=== PATIENT | female | born 1965 | race Caucasian/White ===

== ENCOUNTER 2023-04-23 18:05 | Emergency (ER) | payer MEDICAID ==
[~2023-04-23] VITALS: Ht 177.8 cm; Wt 90.0 kg
[2023-04-23] MEDS ORDERED: ondansetron 4mg rapidly disintigrating tab PO ONE (19:30)
[2023-04-23] MEDS ORDERED: morphine 4 MG/ML inj SYRINge IM ONE (19:30)
[2023-04-23 20:18] LABS: BASOPHILS % (AUTO) 0.3 % (0-1); EOSINOPHILS % (AUTO) 0.3 % (0-6); HEMATOCRIT 35.1 % (35.0-45.0); HEMOGLOBIN 11.9 g/dl (12.0-16.0); LYMPHOCYTES # (AUTO) 2.4 X10'3 (1.1-4.8); LYMPHOCYTES % (AUTO) 25.2 % (21-51); MEAN CORPUSCULAR HEMOGLOBIN 32.5 PG (27.0-31.0); MEAN CORPUSCULAR VOLUME 95.5 FL (78-98); MEAN PLATELET VOLUME 7.8 FL (7.4-10.4); MONOCYTES # (AUTO) 1.5 X10'3 (0-0.9); MONOCYTES % (AUTO) 15.7 % (2-12); NEUTROPHILS # (AUTO) 5.5 X10'3 (1.8-7.7); NEUTROPHILS % (AUTO) 58.5 % (42-75); PLATELET COUNT 126 X10'3 (140-440); RED BLOOD COUNT 3.67 X10'6 (4.20-5.60); RED CELL DISTRIBUTION WIDTH 14.1 % (11.5-14.5); WHITE BLOOD COUNT 9.4 X10'3 (4.5-11.0)
[2023-04-23 20:31] LABS: ALANINE AMINOTRANSFERASE 13 U/L (12-78); ALBUMIN 2.7 G/DL (3.4-5.0); ALBUMIN/GLOBULIN RATIO 0.8 (1.1-1.5); ALKALINE PHOSPHATASE 41 IU/L (46-116); ANION GAP 4 (8-16); ASPARTATE AMINO TRANSFERASE 15 U/L (10-37); BILIRUBIN,TOTAL 0.3 MG/DL (0.1-1.0); BLOOD UREA NITROGEN 10 MG/DL (7-18); BUN/CREATININE RATIO 11.4 (10.0-20.0); CALCIUM 8.6 MG/DL (8.5-10.1); CHLORIDE 98 MMOL/L (99-107); CREATININE 0.88 MG/DL (0.40-0.90); GLUCOSE 96 MG/DL (70-104); POTASSIUM 4.5 MMOL/L (3.5-5.1); SODIUM 132 MMOL/L (135-145); TOTAL CARBON DIOXIDE 29.7 MMOL/L (24-32); TOTAL PROTEIN 5.9 G/DL (6.4-8.2); eGFR 66 ML/MIN
[2023-04-23 21:09] VITALS: BP 136/86
[2023-04-23 21:11] LABS: COLOR,URINE YELLOW (Yellow); GLUCOSE, URINE NEGATIVE (Neg); KETONES,URINE NEGATIVE (Neg); LEUKOCYTE ESTERASE ,URINE NEGATIVE (Neg); NITRITES, URINE NEGATIVE (Neg); OCCULT BLOOD,URINE TRACE-INTACT (Neg); PROTEIN,URINE NEGATIVE (Neg)
[2023-04-23 21:19] LABS: UA COLLECTION TYPE STRAIGHT CATH
[2023-04-23 21:20] LABS: CLARITY,URINE SLIGHTLY CLOUDY (Clear)
[2023-04-23 21:22] LABS: BACTERIA,URINE FEW /HPF (Neg); MUCUS STRANDS FEW /LPF (Neg); RBC,URINE 0-2 /HPF (0-2); SQUAMOUS EPITHELIAL CELL,UR FEW /LPF (FEW)
[2023-04-23 21:23] LABS: TRANSITIONAL EPI CELLS,URINE FEW /HPF; URIC ACID CRYSTALS FEW /HPF (NEGATIVE); WBC CLUMPS,URINE FEW /HPF (NEGATIVE)
== END 2023-04-23 22:05 | disposition home or self-care (01) ==
LOC: ER 18:06
DX: N39.0 Urinary tract infection, site not specified (principal); R62.50 Unspecified lack of expected normal physiological development in childhood; R45.1 Restlessness and agitation
CPT/HCPCS: 36415; 80053; 81001; 85025; 87088; 93005; 99284

== ENCOUNTER 2025-02-12 16:04 | Emergency (ER) | payer MEDICAID ==
[~2025-02-12] VITALS: Ht 172.7 cm; Wt 92.7 kg
[2025-02-12] MEDS: HYDROcodone/acetaminophen 10/325mg tab PO ONE (18:37)
[2025-02-12] MEDS: ondansetron 4mg rapidly disintigrating tab PO ONE (18:37)
[2025-02-12] MEDS: TETanus/Pertussis (Acell)/Diphther VAC/PF (Tdap-Adult) 0.5ml syringe IMVAC ONE (18:40)
[2025-02-12] MEDS: morphine 4 MG/ML inj SYRINge IV ONE (19:24)
[2025-02-12] MEDS: ondansetron/PF 4mg/2ml inj IV ONE (19:24)
[2025-02-12] MEDS: LIDOcaine 1% 30ml preserv. free vial SQ STA (19:25)
[2025-02-12 19:31] LABS: BASOPHILS % (AUTO) 0.2 % (0-1); EOSINOPHILS # (AUTO) 0.1 X10'3 (0-0.9); EOSINOPHILS % (AUTO) 0.9 % (0-6); HEMOGLOBIN 11.7 g/dl (12.0-16.0); LYMPHOCYTES # (AUTO) 2.7 X10'3 (1.1-4.8); LYMPHOCYTES % (AUTO) 24.8 % (21-51); MEAN CORPUSCULAR HEMOGLOBIN 32.1 PG (27.0-31.0); MEAN CORPUSCULAR HGB CONC 34.3 g/dL (33.0-36.5); MEAN CORPUSCULAR VOLUME 93.5 FL (78-98); MEAN PLATELET VOLUME 8.9 FL (7.4-10.4); MONOCYTES # (AUTO) 0.9 X10'3 (0-0.9); MONOCYTES % (AUTO) 8.2 % (2-12); NEUTROPHILS # (AUTO) 7.1 X10'3 (1.8-7.7); NEUTROPHILS % (AUTO) 65.9 % (42-75); PLATELET COUNT 165 X10'3 (140-440); RED BLOOD COUNT 3.64 X10'6 (4.20-5.60); RED CELL DISTRIBUTION WIDTH 13.5 % (11.5-14.5); WHITE BLOOD COUNT 10.7 X10'3 (4.5-11.0)
[2025-02-12 19:41] LABS: APTT 32 SECONDS (22-32); INR 1.1 INR; PROTHROMBIN TIME 11.5 SECONDS (9.0-12.0)
[2025-02-12 19:46] LABS: ALBUMIN 3.2 G/DL (3.4-5.0); ANION GAP 6 (8-16); BLOOD UREA NITROGEN 15 MG/DL (7-18); BUN/CREATININE RATIO 18.8 (10.0-20.0); CALCIUM 8.4 MG/DL (8.5-10.1); CHLORIDE 98 MMOL/L (99-107); ETHANOL < 10 MG/DL (<10); GLUCOSE 108 MG/DL (70-104); POTASSIUM 4.6 MMOL/L (3.5-5.1); SODIUM 133 MMOL/L (135-145); eCRCL 77 ML/MIN; eGFR 74 ML/MIN
[2025-02-12] MEDS: ampicillin/sulbac 3gm/NS 100ml 100 ML IV ONE (21:10)
[2025-02-12] MEDS ORDERED: AMOX-580 PO (22:11)
[2025-02-12 23:18] VITALS: BP 97/74; PULSE 83; RESP 15; TEMP 98.1; O2SAT 93
== END 2025-02-12 23:21 | disposition home or self-care (01) ==
LOC: ER 16:04
DX: S02.2XXA Fracture of nasal bones, initial encounter for closed fracture (principal); S09.90XA Unspecified injury of head, initial encounter; S02.113A Unspecified occipital condyle fracture, initial encounter for closed fracture; S12.9XXA Fracture of neck, unspecified, initial encounter; W01.0XXA Fall on same level from slipping, tripping and stumbling without subsequent striking against object, initial encounter; Y93.9 Activity, unspecified; Y92.89 Other specified places as the place of occurrence of the external cause; Y99.8 Other external cause status
CPT/HCPCS: 12013; 36415; 70450; 70486; 72125; 80048; 80320; 84484; 85025; 85610; 85730; 90471; 90715; 93005; 96365; 96375; 99285; J0295; J2003; J2270; J2405; L0172

== ENCOUNTER 2025-03-09 09:17 | Inpatient (IN) | payer MEDICAID ==
[~2025-03-09] VITALS: Ht 170.2 cm; Wt 72.7 kg
--- NOTE | 2025-03-09 10:15 | Physician Documentation ---
History of Present Illness ~ Chief Complaint: Syncope Stated Complaint: FALL Time Seen by MD: 10:04 Mode of Arrival: EMS HPI 59-year-old female presenting from her senior care facility with acute onset loss of consciousness. Her caregiver states that the patient was attending her day program today when she suddenly got very dizzy and fainted. The patient is a poor historian and can not provide much history. Caregiver states that the patient was on the ground and also shook for a few sec and then regained consciousness. He states that she appears more confused than usual but also that she typically is not always fully with it. There were no reports of any reported chest pain, shortness of breath or other signs and symptoms. Medication Reconciliation Allergies: Coded Allergies: No Allergy Information Available (Unverified , 04/23/23) Past Medical History Past Medical History: UTI Alcohol Use: None Drug Use: none Lives In: Assisted Care Review of Systems All Other Systems at this time: Reviewed and Negative Physical Exam Vital Signs: Temperature: 99.3, Source: Oral, Heart Rate: 102, Respiratory Rate: 18, BP: 98/70, Pulse Oximetry: 94, Weight: 72.730 Oxygen Flow Rate: 0 Physical Exam I have reviewed the triage vitals. CONST: Patient is awake and answers questions but appears slightly confused, skin is slightly pale HENT: Head Atraumatic EYES: Pupils are equal, round and reactive to light. Normal conjunctiva NECK: Neck is in a soft cervical collar CARDIO: Normal rate and regular rhythm. No murmurs, rubs, or gallops. S1, S2. PULM/CHEST: No respiratory distress. Significant crackles bilaterally ABD: Soft and nontender. Nondistended. Bowel sounds normal. No guarding. : Exam deferred MSK: No edema. No deformity. NEURO: Alert and oriented to person, place and time. Moving all extremities SKIN: Warm and dry. Pale PSYCH: Normal mood and affect. Good eye contact. Progress Results/Orders Results/Orders Orders - HARIS MATOS MD Type And Screen (03/09/25 10:11) Chest,Single View (03/09/25 10:11) Ct Head (03/09/25 10:11) Hs Troponin I W Calculations (03/09/25 12:11) Hs Troponin I W Calculations (03/09/25 13:11) Culture Blood (03/09/25 10:11) Page Hospitalist (03/09/25 12:25) Fill Out Med Reconciliation (03/09/25 12:25) Levofloxacin-Levaquin 500mg/D5 (Levaquin (03/09/25 12:35) Vancomycin Inj (Vancomycin Inj) (03/09/25 12:35) Normal Saline 1000ml (Sodium Chloride 10 (03/09/25 12:35) Completed Orders - HARIS MATOS MD Electrocardiogram (03/09/25 10:11) Cbc/Diff (03/09/25 10:11) CK (03/09/25 10:11) Pt Inr (03/09/25 10:11) PTT (03/09/25 10:11) Chest,Single View (03/09/25 10:11) MG (03/09/25 10:11) Normal Saline 1000ml (Sodium Chloride 10 (03/09/25 10:15) Ct Head (03/09/25 10:11) CMP (03/09/25 10:11) Hs Troponin I W Calculations (03/09/25 10:11) Lacticsepsis (03/09/25 10:11) Ammonia (03/09/25 10:13) Man Diff (03/09/25 10:40) Medications Received in ER Medications (Trade) Dose Ordered Sig/Ankit Route PRN Reason Start Time Stop Time Status Last Admin Dose Admin (sodium chloride 1000ml IV soln) 500 ml ONCE ONCE IVB 03/09/25 10:15 03/09/25 10:16 DC 03/09/25 10:28 500 ML Vital Signs 03/09/25 03/09/25 03/09/25 03/09/25 09:25 09:39 09:41 09:51 Temp 99.3 99.3 Pulse 107 102 Resp 21 18 18 B/P (MAP) 89/65 98/70 (79) Pulse Ox 91 92 94 O2 Delivery Nasal Cannula* O2 Flow Rate 1.0 1 0 FiO2 24 Laboratory Tests Test 03/09/25 10:32 03/09/25 10:40 Lactic Acid Level 1.8 White Blood Count 17.9 H Red Blood Count 3.68 L Hemoglobin 11.6 L Hematocrit 34.4 L Mean Corpuscular Volume 93.5 Mean Corpuscular Hemoglobin 31.6 H Mean Corpuscular Hemoglobin Concent 33.8 Red Cell Distribution Width 13.4 Platelet Count 212 Mean Platelet Volume 8.2 Neutrophils (%) (Auto) 88.8 H Lymphocytes (%) (Auto) 5.3 L Monocytes (%) (Auto) 5.5 Eosinophils (%) (Auto) 0.1 Basophils (%) (Auto) 0.3 Neutrophils # (Auto) 15.9 H Lymphocytes # (Auto) 0.9 L Monocytes # (Auto) 1.0 H Eosinophils # (Auto) 0.0 Basophils # (Auto) 0.0 CBC Comment Differential Total Cells Counted 100 Neutrophils % (Manual) 84 H Band Neutrophils % 10 Lymphocytes % (Manual) 1 L Monocytes % (Manual) 4 Metamyelocytes % 1 H Toxic Vacuolation Few Platelet Estimate Normal Red Blood Cell Morphology Normal Basophilic Stippling Prothrombin Time 11.3 INR International Normalized Ratio 1.1 Activated Partial Thromboplast Time 32 Coagulation Comments Sodium Level 131 L Potassium Level 4.4 Chloride Level 100 Carbon Dioxide Level 27.0 Anion Gap 4 L Blood Urea Nitrogen 10 Creatinine 0.78 Estimated GFR/1.73 m2 76 BUN/Creatinine Ratio 12.8 Glucose Level 73 Calcium Level 8.1 L Magnesium Level 1.4 L Total Bilirubin 0.3 Aspartate Amino Transf (AST/SGOT) 17 Alanine Aminotransferase (ALT/SGPT) 14 Alkaline Phosphatase 75 Ammonia 28 Total Creatine Kinase 49 Troponin I High Sensitivity 7 Total Protein 5.7 L Albumin 2.8 L Globulin 2.9 Albumin/Globulin Ratio 1.0 L Chemistry Comments EKG/XRAY/CT/US/VASC/MRI Chest X-Ray : Additional Comments EXAM: DI CHEST,SINGLE VIEW Indication: syncope Technique: Single frontal view of the chest was obtained Comparison: None FINDINGS: Lines and Tubes: None Lungs: Patchy right lung consolidative opacities. No pneumothorax. Cardiomediastinal contours: Unremarkable Bones: No acute osseous abnormality. IMPRESSION: Right lung pneumonia. Recommend repeat imaging after the completion of treatment. : Impression EXAM: CT CT HEAD HISTORY: syncope COMPARISON: CT CT HEAD on DOS: 02/12/25 TECHNIQUE: Axial images of the head were obtained and reformatted in coronal and sagittal planes. All CT scans at this medical facility are performed using dose modulation techniques as appropriate to a performed exam including the following: Automated exposure control was utilized; adjustment of the MA and/or KV according to patient size; and use of iterative reconstruction technique. CT Dose: CTDI volume is 51 mGy. Dose-length product is 928 mGy*cm FINDINGS: There is no evidence of acute intracranial hemorrhage, mass, mass effect midline shift. There is no hydrocephalus or extra-axial fluid collection. Parkinson-white matter differentiation is maintained. The visualized paranasal sinuses and mastoid air cells are clear. The calvarium is intact. IMPRESSION: 1. No acute intracranial process. HS:Y Medical Decision Making Additional Information 59-year-old female presenting with a syncopal episode and hypotension. A workup indicates that she has a right-sided pneumonia which is likely also causing some sepsis which would explain the hypotension. This would explain why she had the syncopal episode as well. Patient's lab work indicates an elevated WBC count of 17. Chest x-ray did indicate a right-sided pneumonia. Patient was initially hypotensive and required IV hydration and received 2 L of IV normal saline which helped improve her blood pressure. She was also started on IV levofloxacin and IV vancomycin for healthcare acquired pneumonia as she resides in a senior care facility. Patient is now mentating well and is back at her baseline after initially presenting with some confusion. Patient's lactic acid is normal however she was hypotensive and does have an elevated WBC count with a source of infection and would qualify as a septic patient. Given these findings he is prudent to have the patient admitted for further treatment and care. Departure Disposition: ADMITTED INPATIENT Admission Level of Care: Med/Surg with Tele Impression: Primary Impression: Pneumonia Additional Impressions: Sepsis Syncope Hypotension Condition: Guarded Referrals: NO PRIMARY CARE PROVIDER (PCP) Critical Care Note Total Time (mins): 40 Critical Care Note The very real possibility of a deterioration of this patient's condition required the highest level of my preparedness for sudden, emergent intervention. I provided critical care services, which included medication orders, frequent reevaluations of the patient's condition and response to treatment, ordering and reviewing test results, and discussing the case with various consultants. Excludes time spent performing separately billable procedures. The critical care time associated with the care of the patient was. Signature Scribe Signature: - Attestation: - HARIS MATOS MD March 09, 2025 10:15
--- NOTE | 2025-03-09 10:19 | ELECTROCARDIOGRAPH REPORT ---
[facility] Test Date: 2025-03-09 Test Time: 10:16:08 Pat Name: LUCY MALDONADO Department: [facility]- Patient ID: [facility]-[id number] Room: [place] [address] Gender: F Chief Technology Officer: : 1965 Requested By: HARIS MATOS Order Number: [id number] Reading MD: Dr. Mickey Richard Measurements Intervals [place] Rate: 97 P: 0 HI: 0 QRS: -5 QRSD: 103 T: 172 QT: 324 QTc: 412 Interpretive Statements Atrial flutter with varied AV block, LVH with secondary repolarization abnormality Electronically Signed On 03-09-2025 20:38:[address] Mickey Richard Please click the below link to view image of tracing.
[2025-03-09] MEDS: normal saline 1000ML IV soln IVB ONE (10:28)
--- NOTE | 2025-03-09 10:33 | RADIOLOGY REPORT ---
EXAM: DI CHEST,SINGLE VIEW Indication: syncope Technique: Single frontal view of the chest was obtained Comparison: None FINDINGS: Lines and Tubes: None Lungs: Patchy right lung consolidative opacities. No pneumothorax. Cardiomediastinal contours: Unremarkable Bones: No acute osseous abnormality. IMPRESSION: Right lung pneumonia. Recommend repeat imaging after the completion of treatment.
[2025-03-09 10:48] LABS: BASOPHILS % (AUTO) 0.3 % (0-1); EOSINOPHILS % (AUTO) 0.1 % (0-6); HEMATOCRIT 34.4 % (35.0-45.0); HEMOGLOBIN 11.6 g/dl (12.0-16.0); LYMPHOCYTES # (AUTO) 0.9 X10'3 (1.1-4.8); LYMPHOCYTES % (AUTO) 5.3 % (21-51); MEAN CORPUSCULAR HEMOGLOBIN 31.6 PG (27.0-31.0); MEAN CORPUSCULAR HGB CONC 33.8 g/dL (33.0-36.5); MEAN CORPUSCULAR VOLUME 93.5 FL (78-98); MEAN PLATELET VOLUME 8.2 FL (7.4-10.4); MONOCYTES % (AUTO) 5.5 % (2-12); NEUTROPHILS # (AUTO) 15.9 X10'3 (1.8-7.7); NEUTROPHILS % (AUTO) 88.8 % (42-75); PLATELET COUNT 212 X10'3 (140-440); RED BLOOD COUNT 3.68 X10'6 (4.20-5.60); RED CELL DISTRIBUTION WIDTH 13.4 % (11.5-14.5); WHITE BLOOD COUNT 17.9 X10'3 (4.5-11.0)
[2025-03-09 11:04] LABS: APTT 32 SECONDS (22-32); INR 1.1 INR; PROTHROMBIN TIME 11.3 SECONDS (9.0-12.0)
--- NOTE | 2025-03-09 11:08 | RADIOLOGY REPORT ---
EXAM: CT CT HEAD HISTORY: syncope COMPARISON: CT CT HEAD on DOS: 02/12/25 TECHNIQUE: Axial images of the head were obtained and reformatted in coronal and sagittal planes. All CT scans at this medical facility are performed using dose modulation techniques as appropriate t o a performed exam including the following: Automated exposure control was utilized; adjustment of th e MA and/or KV according to patient size; and use of iterative reconstruction technique. CT Dose: CTDI volume is 51 mGy. Dose-length product is 928 mGy*cm FINDINGS: There is no evidence of acute intracranial hemorrhage, mass, mass effect midline shift. There is no h ydrocephalus or extra-axial fluid collection. Parkinson-white matter differentiation is maintained. The visualized paranasal sinuses and mastoid air cells are clear. The calvarium is intact. IMPRESSION: 1. No acute intracranial process. HS:Y
[2025-03-09 11:13] LABS: ALANINE AMINOTRANSFERASE 14 U/L (12-78); ALBUMIN 2.8 G/DL (3.4-5.0); ALKALINE PHOSPHATASE 75 IU/L (46-116); ANION GAP 4 (8-16); ASPARTATE AMINO TRANSFERASE 17 U/L (10-37); BILIRUBIN,TOTAL 0.3 MG/DL (0.1-1.0); BLOOD UREA NITROGEN 10 MG/DL (7-18); BUN/CREATININE RATIO 12.8 (10.0-20.0); CALCIUM 8.1 MG/DL (8.5-10.1); CHLORIDE 100 MMOL/L (99-107); CREATINE KINASE 49 U/L (26-192); CREATININE 0.78 MG/DL (0.40-0.90); GLUCOSE 73 MG/DL (70-104); MAGNESIUM 1.4 MG/DL (1.5-2.4); POTASSIUM 4.4 MMOL/L (3.5-5.1); SODIUM 131 MMOL/L (135-145); TOTAL PROTEIN 5.7 G/DL (6.4-8.2); eCRCL 76 ML/MIN; eGFR 76 ML/MIN
[2025-03-09 11:15] LABS: BANDS% (MANUAL) 10 % (0-10); LYMPHOCYTES % (MANUAL) 1 % (21-51); METAMYLEOCYTES% (MANUAL) 1 % (0-0); MONOCYTES % (MANUAL) 4 % (2-12); NEUTROPHILS % (MANUAL) 84 % (42-75); PLATELET ESTIMATE NORMAL; TOTAL CELLS COUNTED 100
[2025-03-09 11:16] LABS: TOXIC VACUOLATION FEW
[2025-03-09] MEDS ORDERED: levoFLOXACIN-Levaquin 500mg/D5 100 ML IV SCH (12:35)
[2025-03-09] MEDS ORDERED: vancomycin inj 1,000 MG in normal saline 250ml IV soln 250 ML IV ONE (12:35)
[2025-03-09] MEDS: vancomycin/NS 1 GM ADD-VANTAGE 250 ML IV ONE (13:17)
[2025-03-09] MEDS: normal saline 1000ml 1,000 ML IV ONE (13:26)
[2025-03-09] MEDS ORDERED: ondansetron/PF 4mg/2ml inj IV PRN (14:35)
[2025-03-09] MEDS ORDERED: morphine 2 MG/ML inj. syringe IV PRN ×2 (14:35)
[2025-03-09] MEDS ORDERED: mag hydrox/Alum hydrox/simeth 30ml oral suspension PO PRN (14:35)
[2025-03-09] MEDS ORDERED: acetaminophen 325mg tablet PO PRN ×2 (14:35)
[2025-03-09] MEDS ORDERED: HYDROcodone/acetaminophen 5mg/325mg tablet PO PRN (14:35)
[2025-03-09] MEDS ORDERED: magnesium hydroxide 30ml (MOM) UD suspension PO PRN (14:35)
--- NOTE | 2025-03-09 14:43 | HISTORY AND PHYSICAL ---
History & Physical Providers to CC ~ History of Present Illness Reason for Admit\Complaint: syncope History of Present Illness This is a 59 years old female who a lives in a residential who was brought in because of a syncopal episode today during her group activities; the syncopal episode was short lasted; patient denies any chest pain; she has been having some increased coughing lately; denies any orthopnea or PND; denies any fever or chills; denies any abdominal pain or diarrhea Allergies: Coded Allergies: No Allergy Information Available (Unverified , 04/23/23) Home Medications Home Medications Active Past Medical History Past Medical History Developmental delay Past Surgical History Surgical History Comment No surgeries Past Social History Social History Comment Family history-no family history of diabetes or heart problems Social history-smokes five cigarettes a day, no alcohol or drugs ROS ROS A 10 point review of system was done with pertinent positives and negatives in the history of present illness Exam Vitals: Vital Signs Date Time Temp Pulse Resp B/P (MAP) Pulse Ox O2 Delivery O2 Flow Rate FiO2 03/09/25 09:51 99.3 102 18 98/70 (79) 94 0 03/09/25 09:39 Nasal Cannula* 24 General: Patient is in bed in nonacute distress HEENT normal oral mucosa no JVD no palpable lymph node palpable thyroid she has a soft collar in place Lungs with normal bilateral entry no crackles no wheezing Heart normal rate and rhythm S1-S2 no murmurs Abdomen is soft nontender bowel sounds are present Extremities no edema plus two pulses Alert and oriented motor and sensory intact Diagnostic Data Last Recorded Lab Results: 03/09/25 1040 03/09/25 1040 Diagnostic Data: Laboratory Tests Test 03/09/25 10:40 Prothrombin Time 11.3 SECONDS (9.0-12.0) INR International Normalized Ratio 1.1 INR Activated Partial Thromboplast Time 32 SECONDS (22-32) Coagulation Comments Advance Care Planning Advanced Care plannin - 30 Minutes Additional Plan Patient presents to the hospital with syncopal episode and was found to be hypotensive in emergency room; hypotension improved with fluid resuscitation; syncope possibly related to hypotension Hypotension possibly related to sepsis and pneumonia; receiving IV fluids Sepsis and pneumonia present on admission; patient started on ceftriaxone and Zithromax History of developmental delay Per the person that works at her group alf patient is not conserved and she can make her own decisions; per discussion with the patient she is a full code; he is admit as an inpatient Date of Service: March 09, 2025 Billing Provider: NE PARIS MD Common Visit Codes: [id number] INP/OBS CARE (HIGH) Secondary Visit Codes: [id number] CARE PLAN 30 MINUTES NE PARIS MD March 09, 2025 14:43
[2025-03-09] MEDS: levoFLOXACIN-Levaquin 500mg/D5 100 ML IV SCH (15:00)
[2025-03-09] MEDS: dextrose 5%-1/2 normal saline 1,000 ML IV SCH (15:00)
[2025-03-09 15:08] LABS: PRO BRAIN NATRIURETIC PEPTIDE 656 PG/ML (0-125)
[2025-03-09 17:40] VITALS: RESP 16
[2025-03-09 18:00] VITALS: BP 120/65; PULSE 87; RESP 17; TEMP 97.8; O2SAT 94
[2025-03-09] MEDS ORDERED: CHLO50TA PO (19:30)
[2025-03-09] MEDS ORDERED: CHLO100T36 PO (19:30)
[2025-03-09] MEDS ORDERED: SENN-360 PO (19:30)
[2025-03-09] MEDS ORDERED: MIRA25TA PO (19:30)
[2025-03-09] MEDS ORDERED: CARB15DR2 RIGHTEYE (19:30)
[2025-03-09] MEDS ORDERED: BENZ0.5T3 PO (19:30)
[2025-03-09] MEDS ORDERED: NITR100C11 PO (19:30)
[2025-03-09] MEDS ORDERED: HYDR-3717 PO (19:30)
[2025-03-09] MEDS ORDERED: DIVA-74 PO (19:30)
[2025-03-09] MEDS ORDERED: CHLO100T47 PO (19:30)
[2025-03-09] MEDS ORDERED: CARB15DR2 LEFTEYE (19:30)
[2025-03-09] MEDS ORDERED: SIMV-42 PO (19:30)
[2025-03-09] MEDS ORDERED: SERT25TA PO (19:34)
[2025-03-09] MEDS ORDERED: magnesium sulf-water 4G/100mL 100 ML IV PRN (19:35)
[2025-03-09] MEDS ORDERED: magnesium sulf-water 2g/50mL 50 ML IV PRN (19:35)
[2025-03-09] MEDS ORDERED: potassium Cl 40MEQ/1/2NS 520ml 520 ML IV PRN (19:35)
[2025-03-09] MEDS ORDERED: potassium Cl 20 mEq SR tablet PO PRN ×2 (19:35)
[2025-03-09] MEDS ORDERED: SERT-434 PO (19:49)
[2025-03-09] MEDS: K and/or MAG REPLACEMENT MC SCH (20:00)
[2025-03-09] MEDS: docusate sod 100mg capsule PO SCH (20:04)
[2025-03-09] MEDS: magnesium Cl slow-release 64mg tablet PO PRN (20:04)
[2025-03-09 22:00] VITALS: BP 99/61; PULSE 83; RESP 15; TEMP 98.3; O2SAT 94
[2025-03-10 05:48] LABS: BILIRUBIN,URINE NEGATIVE (Neg); CLARITY,URINE CLEAR (Clear); COLOR,URINE STRAW (Yellow); GLUCOSE, URINE NEGATIVE (Neg); KETONES,URINE NEGATIVE (Neg); LEUKOCYTE ESTERASE ,URINE TRACE (Neg); NITRITES, URINE NEGATIVE (Neg); OCCULT BLOOD,URINE NEGATIVE (Neg); PH,URINE 6.5 (4.8-8.0); PROTEIN,URINE NEGATIVE (Neg); UROBILINOGEN,URINE 0.2 E.U/dL (0.2-1.0)
[2025-03-10 05:55] LABS: UA COLLECTION TYPE NON-SPECIFIED
[2025-03-10 05:56] LABS: BASOPHILS % (AUTO) 0 % (0-1); EOSINOPHILS % (AUTO) 0.2 % (0-6); HEMATOCRIT 29.8 % (35.0-45.0); HEMOGLOBIN 10.2 g/dl (12.0-16.0); LYMPHOCYTES # (AUTO) 2.6 X10'3 (1.1-4.8); MEAN CORPUSCULAR HGB CONC 34.3 g/dL (33.0-36.5); MEAN CORPUSCULAR VOLUME 93.4 FL (78-98); MEAN PLATELET VOLUME 8.6 FL (7.4-10.4); MONOCYTES # (AUTO) 1.6 X10'3 (0-0.9); MONOCYTES % (AUTO) 8.2 % (2-12); NEUTROPHILS # (AUTO) 15.6 X10'3 (1.8-7.7); NEUTROPHILS % (AUTO) 78.6 % (42-75); PLATELET COUNT 187 X10'3 (140-440); RED BLOOD COUNT 3.19 X10'6 (4.20-5.60); RED CELL DISTRIBUTION WIDTH 13.7 % (11.5-14.5); WHITE BLOOD COUNT 19.8 X10'3 (4.5-11.0)
[2025-03-10 05:59] LABS: ALBUMIN 2.3 G/DL (3.4-5.0); ANION GAP 5 (8-16); BLOOD UREA NITROGEN 6 MG/DL (7-18); BUN/CREATININE RATIO 9.8 (10.0-20.0); CALCIUM 8.2 MG/DL (8.5-10.1); CHLORIDE 106 MMOL/L (99-107); CREATININE 0.61 MG/DL (0.40-0.90); GLUCOSE 85 MG/DL (70-104); MAGNESIUM 1.5 MG/DL (1.5-2.4); POTASSIUM 3.8 MMOL/L (3.5-5.1); SODIUM 136 MMOL/L (135-145); TOTAL CARBON DIOXIDE 25.5 MMOL/L (24-32); eCRCL 98 ML/MIN; eGFR > 90 ML/MIN
[2025-03-10 06:00] VITALS: BP 108/69; PULSE 91; RESP 14; TEMP 97.4; O2SAT 93
[2025-03-10 07:06] LABS: WBC,URINE 0-4 /HPF (0-4)
[2025-03-10 07:07] LABS: BACTERIA,URINE NONE SEEN /HPF (Neg); MUCUS STRANDS NONE SEEN /LPF (Neg); SQUAMOUS EPITHELIAL CELL,UR FEW /LPF (FEW)
[2025-03-10] MEDS: enoxaparin 40mg/0.4ml syringe SUBCUT SCH (08:18)
[2025-03-10] MEDS: azithromycin/NS 500mg/250ml 250 ML IV SCH (08:18)
[2025-03-10] MEDS: CefTRIAXone/D5W-Rocephin 1gm 50 ML IV SCH (08:19)
[2025-03-10] MEDS: benztropine 1mg tablet PO SCH (08:38)
[2025-03-10] MEDS ORDERED: divalproex 250mg tablet, delayed-release PO SCH (08:40)
[2025-03-10] MEDS ORDERED: CHLO100T47 PO (09:32)
[2025-03-10 09:56] LABS: HEMOGLOBIN A1C 5.2 % (4.5-6.2)
[2025-03-10 10:00] VITALS: BP 131/77; PULSE 92; RESP 19; TEMP 98; O2SAT 95
[2025-03-10] MEDS: metroNIDAZOLE-Flagyl 500mg/NS 100 ML IV SCH (10:07)
[2025-03-10] MEDS: sertraline 50mg tablet PO SCH (10:08)
[2025-03-10] MEDS ORDERED: CHLO100T36 PO (10:48)
[2025-03-10] MEDS: chlorproMAZINE 25mg tablet PO SCH ×2 (13:48→21:32)
[2025-03-10] MEDS ORDERED: GLYCERIN RIGHTEYE SCH (14:00)
[2025-03-10] MEDS: CARBOXYMETHYLCELLULOSE EACHEYE SCH (14:00)
[2025-03-10] MEDS ORDERED: CARBOXYMETHYLCELLULOS RIGHTEYE SCH (14:00)
[2025-03-10] MEDS: GLYCERIN EACHEYE SCH (14:00)
[2025-03-10] MEDS: divalproex sodium 500mg tablet.DR PO SCH (15:55)
--- NOTE | 2025-03-10 16:17 | PROGRESS NOTE- Residence ---
Progress Note - Resident Providers to CC Resident Creating Document: GEOFFREY REYNAGA RES ~ Antibiotic Timeout Antibiotic Ordered?: Yes Subjective Patient was peacefully and comfortably sitting on her bed with the collar neck support. Patient might have aspiration pneumonia from choking and dysphagia problems, we will assess the swallow test with the proper ST evaluation which recommended for the puree nectar thick diet. Objective Vital Signs Date Time Temp Pulse Resp B/P (MAP) Pulse Ox O2 Delivery O2 Flow Rate FiO2 03/10/25 10:00 98.0 92 19 131/77 (95) 95 Room Air 03/09/25 15:08 0 03/09/25 09:39 24 Result Diagram: 03/10/25 0516 03/10/25 0516 Vitals were stable at the moment with temp 97.4 F, CA 91/minute, RR 14/minute, BP 108/69 mm Hg, pulse oximetry 93% on room air. General: Well alert, well oriented, not confused, not agitated, not in acute distress, well cooperated during the physical. HEENT: Conjunctive are pink, sclerae clear, no icterus, pupil is equal in both sides, reactive to light, no ear discharge, no pharyngeal erythema or an edema, mouth and lips are moist.SOft collar neck support. Neck: Supple, no JVD, no lymphadenopathy and thyromegaly. Lungs:Equal air entry on both lungs, no additional sounds Heart: S1-S2 regular sinus rhythm and, regular rate, no gallops, no rubs, no murmurs Abdomen: No visible peristalsis, Bowel sounds present on auscultation, soft, nontender, no guarding, no rigidity Extremities: No obvious deformities, no pitting edema bilaterally, capillary refill intact, able to wiggle toes both sides, peripheral pulsations are intact on both sides TRADE MARK ATTORNEY: No focal neurological deficits, no motor and sensory weakness in all 4 extremities, could move all 4 extremities Musculoskeletal: No joint swelling, deformities, inflammations, and no scoliosis and back tenderness Skin: No active skin lesions and rashes Coagulation Studies Laboratory Tests Test 03/09/25 10:40 Prothrombin Time 11.3 SECONDS (9.0-12.0) INR International Normalized Ratio 1.1 INR Activated Partial Thromboplast Time 32 SECONDS (22-32) Coagulation Comments Assessment Assessment 59 years old female who lives in a residential with a past medical history of developmental delayed presented with syncopal episode and progressive coughing over days. Plan Plan # Developmental delay Hx # Sepsis and acute hypoxic respiratory failure from possible Aspiration pneumonia # neutrophilic leukocytosis -continue IV ceftriaxone and Zithromax -D2, added IV Flagyl-D1, stopped levofloxacin completed day two -normal temperature, CA 92/minute, RR 14/minute, BP 131/77 mm Hg -up trending WBC, daily CBC check -UA show only trace amount of leukocyte esterase without lower urinary tract infection symptoms which should be covered with IV ceftriaxone -chest x-ray on 03/09/2025 showed right pneumonia, recommended to recheck after treatment # hyponatremia -sodium 136 trending up from 131 -daily CMP check # nonspecific elevated proBNP # selective hypoalbuminemia -creatinine 0.61, nonspecific elevated proBNP 656 patient did not have any acute congestive heart failure signs and symptoms at the moment and patient sepsis was revised with the IV fluids resuscitation. -encourage protein diet # Bed bound and neurological complications from the developmental delayed # Mental issues # Hyperactive bladder -continue home medications appropriately after medication reconciliation was done CODE STATUS: Full code DVT prophylaxis: SCDs until fully ambulatory Analgesia/sedation: Tylenol Lines/tubes: Peripheral IV GI prophylaxis: None Nutrition: Puree [place] [employer] thick Prognosis: Guarded Disposition: Continue medical management including IV antibiotics, respiratory support, PT eval and DC plan. Resident MD attestation: Patient was seen and examined with attending MD, Dr. Christopher REYNAGA MD Internal Medicine Resident, PGY2 [facility] Date of Service: March 10, 2025 Billing Provider: NE PARIS MD Common Visit Codes: [id number] INP/OBS CARE(HIGH) GEOFFREY REYNAGA, RES March 10, 2025 16:17 NE PARIS MD March 10, 2025 21:13
[2025-03-10 18:00] VITALS: BP 114/69; PULSE 95; RESP 20; TEMP 99.3; O2SAT 95
[2025-03-10] MEDS: MIRABEGRON 25 MG PO SCH (21:00)
[2025-03-10] MEDS: simvastatin 20mg tablet PO SCH (21:33)
[2025-03-10] MEDS: nitrofuran monohydrate/nitrofuran macrocrysal 100 MG (MacroBID) capsule PO SCH (21:33)
[2025-03-10 22:00] VITALS: BP 117/71; PULSE 81; RESP 15; TEMP 96.7; O2SAT 96
[2025-03-11 06:13] VITALS: BP 118/55; PULSE 84; RESP 16; TEMP 97.7; O2SAT 96
[2025-03-11 06:40] LABS: BASOPHILS % (AUTO) 0.2 % (0-1); EOSINOPHILS # (AUTO) 0.1 X10'3 (0-0.9); EOSINOPHILS % (AUTO) 0.4 % (0-6); HEMATOCRIT 31.4 % (35.0-45.0); HEMOGLOBIN 10.6 g/dl (12.0-16.0); LYMPHOCYTES % (AUTO) 23.5 % (21-51); MEAN CORPUSCULAR HEMOGLOBIN 31.6 PG (27.0-31.0); MEAN CORPUSCULAR HGB CONC 33.9 g/dL (33.0-36.5); MEAN CORPUSCULAR VOLUME 93.1 FL (78-98); MONOCYTES # (AUTO) 0.9 X10'3 (0-0.9); MONOCYTES % (AUTO) 7.2 % (2-12); NEUTROPHILS # (AUTO) 8.8 X10'3 (1.8-7.7); NEUTROPHILS % (AUTO) 68.7 % (42-75); PLATELET COUNT 182 X10'3 (140-440); RED BLOOD COUNT 3.37 X10'6 (4.20-5.60); RED CELL DISTRIBUTION WIDTH 13.5 % (11.5-14.5); WHITE BLOOD COUNT 12.8 X10'3 (4.5-11.0)
[2025-03-11 07:00] LABS: ALBUMIN 2.4 G/DL (3.4-5.0); ANION GAP 4 (8-16); BLOOD UREA NITROGEN 3 MG/DL (7-18); BUN/CREATININE RATIO 5.3 (10.0-20.0); CALCIUM 8.5 MG/DL (8.5-10.1); CHLORIDE 108 MMOL/L (99-107); CREATININE 0.57 MG/DL (0.40-0.90); GLUCOSE 87 MG/DL (70-104); POTASSIUM 3.7 MMOL/L (3.5-5.1); SODIUM 139 MMOL/L (135-145); TOTAL CARBON DIOXIDE 27.3 MMOL/L (24-32); eCRCL 105 ML/MIN; eGFR > 90 ML/MIN
[2025-03-11 08:00] VITALS: RESP 18
[2025-03-11] MEDS ORDERED: chlorproMAZINE HCL 100 MG TABLET PO SCH (08:00)
[2025-03-11] MEDS: sennosides 8.6mg tablet PO SCH (08:13)
[2025-03-11] MEDS: chlorproMAZINE 25mg tablet PO SCH (08:15)
[2025-03-11 10:00] VITALS: BP 125/63; PULSE 77; RESP 15; TEMP 98.6; O2SAT 94
--- NOTE | 2025-03-11 16:17 | PROGRESS NOTE- Residence ---
Progress Note - Resident Providers to CC Resident Creating Document: GEOFFREY REYNAGA RES ~ Antibiotic Timeout Antibiotic Ordered?: Yes Subjective Patient wants to go back her group house facility. She complained that she does not have any bowel movement and coughing is not getting better. Objective Vital Signs Date Time Temp Pulse Resp B/P (MAP) Pulse Ox O2 Delivery O2 Flow Rate FiO2 03/11/25 10:00 98.6 77 15 125/63 (83) 94 Room Air 03/10/25 20:00 0.0 24 Result Diagram: 03/11/25 0556 03/11/25 0556 Vitals were stable at the moment with temp 98.6 F, NH 77/minute, RR 15/minute, BP 125/63 mm Hg, pulse oximetry 94% on room air. General: Well alert, well oriented, not confused, not agitated, not in acute distress, well cooperated during the physical. HEENT: Conjunctive are pink, sclerae clear, no icterus, pupil is equal in both sides, reactive to light, no ear discharge, no pharyngeal erythema or an edema, mouth and lips are moist.SOft collar neck support. Neck: Supple, no JVD, no lymphadenopathy and thyromegaly. Lungs:Equal air entry on both lungs, no additional sounds Heart: S1-S2 regular sinus rhythm and, regular rate, no gallops, no rubs, no murmurs Abdomen: No visible peristalsis, Bowel sounds present on auscultation, soft, nontender, no guarding, no rigidity Extremities: No obvious deformities, no pitting edema bilaterally, capillary refill intact, able to wiggle toes both sides, peripheral pulsations are intact on both sides KENNEL WORKER: No focal neurological deficits, no motor and sensory weakness in all 4 extremities, could move all 4 extremities Musculoskeletal: No joint swelling, deformities, inflammations, and no scoliosis and back tenderness Skin: No active skin lesions and rashes Coagulation Studies Laboratory Tests Test 03/09/25 10:40 Prothrombin Time 11.3 SECONDS (9.0-12.0) INR International Normalized Ratio 1.1 INR Activated Partial Thromboplast Time 32 SECONDS (22-32) Coagulation Comments Assessment Assessment 59 years old female who lives in a residential with a past medical history of developmental delayed presented with syncopal episode and progressive coughing over days. Plan Plan # Developmental delay Hx # Sepsis and acute hypoxic respiratory failure from possible Aspiration pneumonia # neutrophilic leukocytosis 03/11/2025: Continue IV ceftriaxone and Zithromax-D3, IV Flagyl D2 -downtrending WBC with 12.8 -continue oxygen supply and titrated down to her baseline as mentioned possible and tolerated. 03/10/25:-continue IV ceftriaxone and Zithromax -D2, added IV Flagyl-D1, stopped levofloxacin completed day two -normal temperature, [place] 92/minute, RR 14/minute, BP 131/77 mm Hg -up trending WBC, daily CBC check -UA show only trace amount of leukocyte esterase without lower urinary tract infection symptoms which should be covered with IV ceftriaxone -chest x-ray on 03/09/2025 showed right pneumonia, recommended to recheck after treatment # hyponatremia 03/11/2025: Sodium is normalized to 139 today 03/10/25:-sodium 136 trending up from 131 -daily CMP check # nonspecific elevated proBNP # selective hypoalbuminemia 03/10/25:-creatinine 0.61, nonspecific elevated proBNP 656 patient did not have any acute congestive heart failure signs and symptoms at the moment and patient sepsis was revised with the IV fluids resuscitation. -encourage protein diet # Bed bound and neurological complications from the developmental delayed # Mental issues # Hyperactive bladder -continue home medications appropriately after medication reconciliation was done CODE STATUS: Full code DVT prophylaxis: SCDs until fully ambulatory Analgesia/sedation: Tylenol Lines/tubes: Peripheral IV GI prophylaxis: None Nutrition: Puree [place] thick Prognosis: Guarded Disposition: Continue medical management including IV antibiotics, respiratory support, bowel movement support, PT eval and DC tomorrow. Resident MD attestation: Patient was seen and examined with attending MD, Dr. Christopher REYNAGA MD Internal Medicine Resident, PGY2 [facility] Date of Service: March 11, 2025 Billing Provider: NE PARIS MD Common Visit Codes: [id number] INP/OBS CARE(HIGH) GEOFFREY REYNAGA RES March 11, 2025 16:17 NE PARIS MD March 11, 2025 19:18
[2025-03-11 18:00] VITALS: BP 123/86; PULSE 86; RESP 16; TEMP 97.9; O2SAT 97
[2025-03-11 20:00] VITALS: RESP 16; O2SAT 98
[2025-03-11 22:00] VITALS: BP 129/92; PULSE 82; RESP 18; TEMP 97.8; O2SAT 95
[2025-03-12 06:38] LABS: BASOPHILS # (AUTO) 0.1 X10'3 (0-0.2); BASOPHILS % (AUTO) 0.6 % (0-1); EOSINOPHILS # (AUTO) 0.1 X10'3 (0-0.9); EOSINOPHILS % (AUTO) 0.5 % (0-6); HEMATOCRIT 34.6 % (35.0-45.0); HEMOGLOBIN 11.9 g/dl (12.0-16.0); LYMPHOCYTES # (AUTO) 2.2 X10'3 (1.1-4.8); LYMPHOCYTES % (AUTO) 19.3 % (21-51); MEAN CORPUSCULAR HEMOGLOBIN 32.1 PG (27.0-31.0); MEAN CORPUSCULAR HGB CONC 34.5 g/dL (33.0-36.5); MEAN PLATELET VOLUME 9.1 FL (7.4-10.4); MONOCYTES # (AUTO) 1.1 X10'3 (0-0.9); MONOCYTES % (AUTO) 9.4 % (2-12); NEUTROPHILS # (AUTO) 7.9 X10'3 (1.8-7.7); NEUTROPHILS % (AUTO) 70.2 % (42-75); PLATELET COUNT 202 X10'3 (140-440); RED BLOOD COUNT 3.72 X10'6 (4.20-5.60); RED CELL DISTRIBUTION WIDTH 13.4 % (11.5-14.5); WHITE BLOOD COUNT 11.3 X10'3 (4.5-11.0)
[2025-03-12 06:54] LABS: ALBUMIN 2.7 G/DL (3.4-5.0); ANION GAP 6 (8-16); BLOOD UREA NITROGEN 2 MG/DL (7-18); BUN/CREATININE RATIO 3.8 (10.0-20.0); CALCIUM 8.9 MG/DL (8.5-10.1); CHLORIDE 99 MMOL/L (99-107); CREATININE 0.53 MG/DL (0.40-0.90); GLUCOSE 110 MG/DL (70-104); SODIUM 134 MMOL/L (135-145); TOTAL CARBON DIOXIDE 28.8 MMOL/L (24-32); eCRCL 113 ML/MIN; eGFR > 90 ML/MIN
[2025-03-12] MEDS ORDERED: METR-159 PO (07:49)
[2025-03-12] MEDS ORDERED: LEVO750T68 PO (07:49)
[2025-03-12 07:55] VITALS: RESP 17
--- NOTE | 2025-03-12 14:13 | DISCHARGE SUMMARY-Residence ---
Discharge Summary Providers to CC Resident Creating Document: MIKEGOSIA DANIEL ~ Discharge Summary Admission Diagnosis: pneumonia, sepsis Hospital Course DATE OF ADMISSION: 03/09/25 DATE OF DISCHARGE: 03/12/25 Discharge Diagnosis\Comment: Acute hypoxemic respiratory failure likely secondary to aspiration pneumonia: POA Sepsis: POA; resolved Hyponatremia: POA, resolved Developmental delay, hyperactive bladder Operations\Procedures: None Consultants: None Complications: None Condition on DC: Stable for transfer New Medications: Levofloxacin (Levofloxacin) 750 Mg Tablet 1 TAB PO DAILY for 7 Days, #7 TAB Metronidazole* (Flagyl*) 500 Mg Tablet 1 TAB PO TID, #20 TAB Continued Medications: Benztropine Mesylate (Benztropine Mesylate) 0.5 Mg Tablet 0.5 MG PO BID, #1 Carboxymethylcellulos/Glycerin (Refresh Optive Eye Drops) 0.5 %-0.9 % Drops 1 DROP LEFTEYE Q6H for dry eyes for 30 Days, #30 ML 0 Refills Carboxymethylcellulos/Glycerin (Refresh Optive Eye Drops) 0.5 %-0.9 % Drops 1 DROP RIGHTEYE Q6H for dry eyes for 30 Days, #30 ML 0 Refills Divalproex Sodium (Divalproex Sodium) 250 Mg Tablet.dr 2 MG PO QID, #2 Hydroxyzine Hcl* (Atarax*) 10 Mg Tablet 1 TAB PO BID, #1 Mirabegron (Myrbetriq) 25 Mg Tab.er.24h 1 TAB PO HS, #1 Nitrofurantoin/Nitrofuran Mac (Nitrofurantoin Tensas-Mcr 100 Mg) 100 Mg Capsule 1 CAP PO HS, #1 Sennosides (Senna) 8.6 Mg Tablet 2 TAB PO DAILY, #2 Sertraline HCl (Sertraline HCl) 100 Mg Tablet 2 TAB PO QAM for 30 Days, #30 TAB 0 Refills Simvastatin* (Zocor*) 20 Mg Tablet 1 TAB PO HS for 30 Days, #30 TAB Discharge Summary: 59-year-old female patient who lives in a care home due to developmental delay was brought into the hospital after suffering from a syncopal episode and progressive cough over the last few days prior to presentation. In the ER, she was found to be hypotensive with systolic in the 80s. Fluids were given to which the blood pressure responded. Chest x-ray revealed presence of a right lower lobe pneumonia. The patient was diagnosed to be in sepsis likely from an aspiration pneumonia in view of her symptoms of increasing acute cough with expectoration. She was treated appropriately with IV antibiotic therapy, fluids and blood cultures were taken. Blood cultures were negative even after five days. There were no recorded febrile episodes of while in the hospital. Blood pressure had improved. Leukocytosis which was initially [id number] and also started to trend down with the IV antibiotic therapy. The rest of her home medications were continued as it is. After monitoring for improvement, the patient was stable for discharge back to her care home. Advised at discharge: Patient can return back to work as mentioned in the form. Continue medications as indicated. You are also being discharged on two new medications of antibiotics. Take them as indicated. But to reduce gastric irritation we are also sending you home on a probiotic. If you have any worsening symptoms including shortness of breath, increased cough with expectoration, fevers or chills, kindly return back to the ER. Physical exam at discharge: General: Awake and alert, no acute distress HEENT: Conjunctive are pink, sclerae clear, no icterus, pupil is equal in both sides, reactive to light. Soft collar Neck support Lungs:Equal air entry on both lungs, no additional sounds Heart: S1-S2 regular sinus rhythm and, regular rate, no gallops, no rubs, no murmurs Abdomen: Soft, nontender, bowel sounds present Extremities: No cyanosis, edema, pallor. Pedal pulses present [employer]ACHINE [employer]ATOR: No focal neurological deficits, no motor and sensory weakness in all 4 extremities, could move all 4 extremities Musculoskeletal: No joint swelling, deformities, inflammations, and no scoliosis and back tenderness Skin: No active skin lesions and rashes Labs at discharge: WBC 11.3, RBC 3.7, hemoglobin 11.9, platelet 202 Sodium 134, potassium 4.0, chloride 99, bicarb 28.8, BUN two, creatinine 0.5, blood glucose 110 Medications at discharge: Levaquin 750 mg for seven days, Flagyl 500 mg t.i.d., benztropine, refresh eye drops, divalproex sodium 2 mg daily, Atarax 10 mg b.i.d., mirabegron 25 mg HS, Macrobid 100 mg HS, senna 8.6 mg two tabs daily, sertraline 100 mg two tabs daily, simvastatin 20 mg HS *Problems/Diagnosis: (1) Pneumonia Status: Acute (2) Sepsis Status: Acute Total Time Spent on D/C: Up to 30 Minutes Counseling Services Smoking & Tobacco Cessation: 3-10 Minutes Date of Service: March 12, 2025 Billing Provider: NE PARIS MD Common Visit Codes: 43755-ALJ/OBS DISCH DAY >30min Problem Qualifiers (1) Pneumonia: Pneumonia type: aspiration pneumonia Aspiration pneumonia type: unspecified Laterality: right Lung location: lower lobe of lung Qualified Codes: J69.0 - Pneumonitis due to inhalation of food and vomit MARÍA MCKEON, GOSIA March 12, 2025 14:12 NE PARIS MD March 12, 2025 21:04
== END 2025-03-12 13:57 | disposition home health service (06) | DRG 720 ==
LOC: ER 09:17 → ED HOLD 14:36 → ORTHO 4S 16:30
PROVIDERS: ADMIT Internal Medicine; ATTEND Internal Medicine
DX: A41.9 Sepsis, unspecified organism (principal); J96.01 Acute respiratory failure with hypoxia; J69.0 Pneumonitis due to inhalation of food and vomit; E87.1 Hypo-osmolality and hyponatremia; E88.09 Other disorders of plasma-protein metabolism, not elsewhere classified; F17.210 Nicotine dependence, cigarettes, uncomplicated; N32.81 Overactive bladder; Z79.899 Other long term (current) drug therapy; Z74.01 Bed confinement status
CPT/HCPCS: 36415; 70450; 71045; 80048; 80053; 81001; 82140; 82550; 83036; 83605; 83735; 83880; 84484; 85007; 85025; 85610; 85730; 86885; 86900; 86901; 87040; 87081; 87088; 92508; 92616; 93005; 96361; 96365; 99291; A4615; G0378; J0456; J0696; J1650; J1956; J3370; J3490; J7030; J7040; J7070; Q0161